=== PATIENT | female | born 1955 | race Caucasian/White ===

== ENCOUNTER 2020-12-18 10:09 | Inpatient (IN) | payer MEDICARE, OTHER ==
[~2020-12-18] VITALS: Ht 170.2 cm; Wt 104.3 kg
[2020-12-18] MEDS ORDERED: NORVASC10 MG PO (20:25)
[2020-12-18] MEDS ORDERED: ALDACTONE50 MG PO (20:27)
[2020-12-18] MEDS ORDERED: COZAAR 25MG TAB25 MG PO (20:29)
[2020-12-18] MEDS ORDERED: NEURONTIN600 MG PO (20:29)
[2020-12-18] MEDS ORDERED: COREG25 MG PO (20:29)
[2020-12-18] MEDS ORDERED: ALL DAY ALLERGY10 M2 PO (20:30)
[2020-12-18] MEDS ORDERED: SINGULAIR10 MG PO (20:30)
[2020-12-18] MEDS ORDERED: LASIX80 MG PO (20:32)
[2020-12-18] MEDS ORDERED: VITAMIN E180 M1 PO (20:37)
[2020-12-18] MEDS ORDERED: HYDROCODON-ACE1 EAC6 PO (20:38)
[2020-12-18] MEDS ORDERED: RENVELA800 MG PO (20:38)
[2020-12-18] MEDS ORDERED: FLONASE ALLER15.8 ML (20:39)
[2020-12-18] MEDS ORDERED: PROAIR HFA8.5 GM INH (20:41)
[2020-12-18] MEDS ORDERED: TRELEGY ELLIPT1 EACH INH (20:42)
[2020-12-18] MEDS ORDERED: ALBUTEROL2.5 MG/3 M INH (20:44)
[2020-12-18] MEDS ORDERED: SPORANOX100 MG PO (20:44)
[2020-12-18] MEDS ORDERED: LEVEMIR100 UNIT/1 SQ (20:45)
[2020-12-18] MEDS ORDERED: BUSPIRONE HCL7.5 MG PO (20:45)
[2020-12-18] MEDS ORDERED: ROCEPHIN 1 GM AD1 GM IV (20:46)
[2020-12-18] MEDS ORDERED: LOVENOX30 MG/0.3 SQ (20:47)
[2020-12-18] MEDS ORDERED: DECADRON IM/I4 MG/ML IV (20:47)
[2020-12-18] MEDS ORDERED: ZITHROMAX500 M1 IV (20:48)
[2020-12-18] MEDS ORDERED: PROTONIX IV40 MG IV (20:49)
[2020-12-18 22:45] LABS: HEMOGLOBIN 9.8 gm/dl (12.3-15.3); RED BLOOD COUNT 3.23 M/UL (4.00-5.10); WHITE BLOOD COUNT 6.4 K/UL (4.5-11.0)
[2020-12-18 23:32] LABS: BUN/CREATININE RATIO 14 (0-10)
[2020-12-20 04:53] LABS: HEMOGLOBIN 8.6 gm/dl (12.3-15.3); WHITE BLOOD COUNT 7.8 K/UL (4.5-11.0)
[2020-12-20 04:54] LABS: RED BLOOD COUNT 2.83 M/UL (4.00-5.10)
[2020-12-21 05:32] LABS: HEMOGLOBIN 8.1 gm/dl (12.3-15.3); RED BLOOD COUNT 2.64 M/UL (4.00-5.10); WHITE BLOOD COUNT 7.3 K/UL (4.5-11.0)
[2020-12-22 05:08] LABS: HEMOGLOBIN 9.3 gm/dl (12.3-15.3)
[2020-12-22 05:09] LABS: RED BLOOD COUNT 3.06 M/UL (4.00-5.10); WHITE BLOOD COUNT 14.1 K/UL (4.5-11.0)
[2020-12-23 06:07] LABS: RED BLOOD COUNT 2.98 M/UL (4.00-5.10); WHITE BLOOD COUNT 12.5 K/UL (4.5-11.0)
[2020-12-24 05:17] LABS: HEMOGLOBIN 10.1 gm/dl (12.3-15.3); RED BLOOD COUNT 3.32 M/UL (4.00-5.10); WHITE BLOOD COUNT 12.5 K/UL (4.5-11.0)
[2020-12-24 12:14] LABS: HBSAG SCREEN Negative (Negative); HEP A AB, IGM Negative (Negative); HEP B CORE AB, IGM Negative (Negative); HEP C VIRUS AB <0.1 (0.0-0.9)
[2020-12-25 05:30] LABS: HEMOGLOBIN 9.8 gm/dl (12.3-15.3); RED BLOOD COUNT 3.24 M/UL (4.00-5.10); WHITE BLOOD COUNT 13.6 K/UL (4.5-11.0)
[2020-12-26 04:45] LABS: HEMOGLOBIN 9.1 gm/dl (12.3-15.3); RED BLOOD COUNT 3.03 M/UL (4.00-5.10); WHITE BLOOD COUNT 12.8 K/UL (4.5-11.0)
[2020-12-27 05:48] LABS: RED BLOOD COUNT 3.01 M/UL (4.00-5.10); WHITE BLOOD COUNT 11.8 K/UL (4.5-11.0)
[2020-12-28 09:12] LABS: RED BLOOD COUNT 2.72 M/UL (4.00-5.10); WHITE BLOOD COUNT 14.4 K/UL (4.5-11.0)
[2020-12-29 10:19] LABS: HEMOGLOBIN 7.8 gm/dl (12.3-15.3); RED BLOOD COUNT 2.59 M/UL (4.00-5.10); WHITE BLOOD COUNT 11.2 K/UL (4.5-11.0)
[2020-12-30 04:41] LABS: HEMOGLOBIN 7.4 gm/dl (12.3-15.3); RED BLOOD COUNT 2.38 M/UL (4.00-5.10)
[2020-12-31 07:55] LABS: RED BLOOD COUNT 2.23 M/UL (4.00-5.10)
[2020-12-31 08:11] LABS: WHITE BLOOD COUNT 17.6 K/UL (4.5-11.0)
[2020-12-31 08:12] LABS: HEMOGLOBIN 6.6 gm/dl (12.3-15.3)
--- NOTE | 2020-12-31 18:09 | NUR ---
LAB HAS NOT GOT PATIENTS BLOOD READY BECAUSE SHE HAS AN ANTIBODY NOTED
[2021-01-01 04:58] LABS: RED BLOOD COUNT 2.92 M/UL (4.00-5.10)
[2021-01-01 04:59] LABS: HEMOGLOBIN 8.9 gm/dl (12.3-15.3)
[2021-01-02 06:23] LABS: HEMOGLOBIN 7.8 gm/dl (12.3-15.3)
[2021-01-02 07:39] LABS: RED BLOOD COUNT 2.57 M/UL (4.00-5.10); WHITE BLOOD COUNT 17.3 K/UL (4.5-11.0)
[2021-01-03 07:33] LABS: RED BLOOD COUNT 2.23 M/UL (4.00-5.10); WHITE BLOOD COUNT 12.3 K/UL (4.5-11.0)
[2021-01-03 07:34] LABS: HEMOGLOBIN 6.7 gm/dl (12.3-15.3)
--- NOTE | 2021-01-03 10:56 | NUR ---
0820- NOTIFIED DR HOOVER OF CRITICAL LAB RESULTS. STATED HE WOULD PUT IN NEW ORDERS.
[2021-01-04 07:18] LABS: HEMOGLOBIN 7.9 gm/dl (12.3-15.3)
[2021-01-04 07:26] LABS: RED BLOOD COUNT 2.54 M/UL (4.00-5.10)
[2021-01-05 06:18] LABS: RED BLOOD COUNT 2.56 M/UL (4.00-5.10); WHITE BLOOD COUNT 9.9 K/UL (4.5-11.0)
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
[2021-01-06 08:06] LABS: HEMOGLOBIN 7.4 gm/dl (12.3-15.3); RED BLOOD COUNT 2.36 M/UL (4.00-5.10); WHITE BLOOD COUNT 7.6 K/UL (4.5-11.0)
[2021-01-07 06:41] LABS: WHITE BLOOD COUNT 8.1 K/UL (4.5-11.0)
[2021-01-07 06:48] LABS: HEMOGLOBIN 6.4 gm/dl (12.3-15.3)
[2021-01-07 07:22] LABS: RED BLOOD COUNT 2.03 M/UL (4.00-5.10); WHITE BLOOD COUNT 8.5 K/UL (4.5-11.0)
[2021-01-07 07:57] LABS: HEMOGLOBIN 6.3 gm/dl (12.3-15.3)
[2021-01-07 16:57] LABS: HEMOGLOBIN 7.7 gm/dl (12.3-15.3)
[2021-01-08 08:34] LABS: HEMOGLOBIN 8.1 gm/dl (12.3-15.3); WHITE BLOOD COUNT 9.4 K/UL (4.5-11.0)
[2021-01-08 08:35] LABS: RED BLOOD COUNT 2.58 M/UL (4.00-5.10)
[2021-01-09 07:53] LABS: HEMOGLOBIN 6.4 gm/dl (12.3-15.3); RED BLOOD COUNT 2.08 M/UL (4.00-5.10); WHITE BLOOD COUNT 5.5 K/UL (4.5-11.0)
[2021-01-10 06:59] LABS: HEMOGLOBIN 7.6 gm/dl (12.3-15.3); WHITE BLOOD COUNT 4.6 K/UL (4.5-11.0)
[2021-01-10 07:11] LABS: RED BLOOD COUNT 2.45 M/UL (4.00-5.10)
[2021-01-11 08:31] LABS: HEMOGLOBIN 7.1 gm/dl (12.3-15.3); RED BLOOD COUNT 2.24 M/UL (4.00-5.10); WHITE BLOOD COUNT 4.1 K/UL (4.5-11.0)
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
[2021-01-12 07:56] LABS: WHITE BLOOD COUNT 3.1 K/UL (4.5-11.0)
[2021-01-12 07:57] LABS: RED BLOOD COUNT 1.9 M/UL (4.00-5.10)
[2021-01-12 07:58] LABS: HEMOGLOBIN 6.1 gm/dl (12.3-15.3)
[2021-01-13 07:07] LABS: HEMOGLOBIN 7.5 gm/dl (12.3-15.3); WHITE BLOOD COUNT 3.6 K/UL (4.5-11.0)
[2021-01-13 07:14] LABS: RED BLOOD COUNT 2.38 M/UL (4.00-5.10)
--- NOTE | 2021-01-13 08:05 | NUR ---
PATIENT HAD A BONE MARROW BIOPSY PERFORMED PER DR. NAJERA THIS AM. SCANT BLOODY DRAINAGE NOTED TO DRESSING EXTERIOR, MD AWARE. NO S/SX OF DISTRESS. BED LOCKED AND LOW. CALL LIGHT WITHIN REACH.
[2021-01-14] MEDS ORDERED: BUSPIRONE HCL7.5 MG PO (09:18)
[2021-01-14] MEDS ORDERED: LANTUS INS100 UTS/M1 SC (09:18)
[2021-01-14] MEDS ORDERED: NEURONTIN600 MG PO (09:18)
[2021-01-14] MEDS ORDERED: HUMALOG 10100 UNITS/ SC (09:18)
[2021-01-14] MEDS ORDERED: HYDROCODON-ACE1 EAC6 PO (09:18)
[2021-01-14] MEDS ORDERED: NICOTINE PATCH1 EAC1 TOP (09:18)
[2021-01-15] MEDS ORDERED: SENNA LAX8.6 MG PO (22:02)
[2021-01-15] MEDS ORDERED: CARVEDILOL12.5 MG PO (22:02)
[2021-01-15] MEDS ORDERED: POLYETHYLENE GL17 GM PO (22:02)
[2021-01-15] MEDS ORDERED: CHRONULAC20 GM/30 M PO (22:08)
[2021-01-15] MEDS ORDERED: RENVELA800 MG PO (22:16)
== END 2021-01-16 20:31 | DRG 208 ==
LOC: CCU 19:51 → MED SURG 4 19:51
PROVIDERS: Internal Medicine; Internal Medicine Nephrology; Internal Medicine Pulmonary Disease; ADMIT Internal Medicine
PROC: 8E0ZXY6 Isolation (ICD-10-PCS; principal; 2020-12-18)
PROC: 5A1945Z Respiratory Ventilation, 24-96 Consecutive Hours (ICD-10-PCS; 2020-12-18)
PROC: 3E0333Z Introduction of Anti-inflammatory into Peripheral Vein, Percutaneous Approach (ICD-10-PCS; 2020-12-18)
PROC: XW033E5 Introduction of Remdesivir Anti-infective into Peripheral Vein, Percutaneous Approach, New Technology Group 5 (ICD-10-PCS; 2020-12-18)
PROC: 0BH17EZ Insertion of Endotracheal Airway into Trachea, Via Natural or Artificial Opening (ICD-10-PCS; 2020-12-18)
PROC: 5A1D70Z Performance of Urinary Filtration, Intermittent, Less than 6 Hours Per Day (ICD-10-PCS; 2020-12-19)
PROC: 5A1D70Z Performance of Urinary Filtration, Intermittent, Less than 6 Hours Per Day (ICD-10-PCS; 2020-12-22)
PROC: 5A1D70Z Performance of Urinary Filtration, Intermittent, Less than 6 Hours Per Day (ICD-10-PCS; 2020-12-23)
PROC: 5A1D70Z Performance of Urinary Filtration, Intermittent, Less than 6 Hours Per Day (ICD-10-PCS; 2020-12-25)
PROC: 5A1D70Z Performance of Urinary Filtration, Intermittent, Less than 6 Hours Per Day (ICD-10-PCS; 2020-12-27)
PROC: 5A1D70Z Performance of Urinary Filtration, Intermittent, Less than 6 Hours Per Day (ICD-10-PCS; 2020-12-30)
PROC: 30233N1 Transfusion of Nonautologous Red Blood Cells into Peripheral Vein, Percutaneous Approach (ICD-10-PCS; 2020-12-31)
PROC: 5A09457 Assistance with Respiratory Ventilation, 24-96 Consecutive Hours, Continuous Positive Airway Pressure (ICD-10-PCS; 2020-12-31)
PROC: 5A1D70Z Performance of Urinary Filtration, Intermittent, Less than 6 Hours Per Day (ICD-10-PCS; 2021-01-01)
PROC: 5A1D70Z Performance of Urinary Filtration, Intermittent, Less than 6 Hours Per Day (ICD-10-PCS; 2021-01-03)
PROC: 5A1D70Z Performance of Urinary Filtration, Intermittent, Less than 6 Hours Per Day (ICD-10-PCS; 2021-01-06)
PROC: 5A1D70Z Performance of Urinary Filtration, Intermittent, Less than 6 Hours Per Day (ICD-10-PCS; 2021-01-08)
PROC: 5A1D70Z Performance of Urinary Filtration, Intermittent, Less than 6 Hours Per Day (ICD-10-PCS; 2021-01-11)
PROC: 07DR3ZX Extraction of Iliac Bone Marrow, Percutaneous Approach, Diagnostic (ICD-10-PCS; 2021-01-13)
PROC: 5A1D70Z Performance of Urinary Filtration, Intermittent, Less than 6 Hours Per Day (ICD-10-PCS; 2021-01-14)
PROC: 5A1D70Z Performance of Urinary Filtration, Intermittent, Less than 6 Hours Per Day (ICD-10-PCS; 2021-01-16)
DX: U07.1 COVID-19 (principal); J12.82 Pneumonia due to coronavirus disease 2019; N18.6 End stage renal disease; I50.33 Acute on chronic diastolic (congestive) heart failure; J80 Acute respiratory distress syndrome; J15.6 Pneumonia due to other Gram-negative bacteria; I13.2 Hypertensive heart and chronic kidney disease with heart failure and with stage 5 chronic kidney disease, or end stage renal disease; J44.0 Chronic obstructive pulmonary disease with (acute) lower respiratory infection; E87.1 Hypo-osmolality and hyponatremia; F11.20 Opioid dependence, uncomplicated; D61.818 Other pancytopenia; E66.2 Morbid (severe) obesity with alveolar hypoventilation; E11.21 Type 2 diabetes mellitus with diabetic nephropathy; F41.8 Other specified anxiety disorders; F17.210 Nicotine dependence, cigarettes, uncomplicated; E87.5 Hyperkalemia; D63.1 Anemia in chronic kidney disease; E11.22 Type 2 diabetes mellitus with diabetic chronic kidney disease; K59.00 Constipation, unspecified; L89.152 Pressure ulcer of sacral region, stage 2; M54.9 Dorsalgia, unspecified; S00.03XA Contusion of scalp, initial encounter; R53.83 Other fatigue; G89.29 Other chronic pain; R53.81 Other malaise; Z99.2 Dependence on renal dialysis; Z68.36 Body mass index [BMI] 36.0-36.9, adult; Z82.49 Family history of ischemic heart disease and other diseases of the circulatory system; Z99.81 Dependence on supplemental oxygen; Z88.2 Allergy status to sulfonamides; Z88.0 Allergy status to penicillin; Z79.82 Long term (current) use of aspirin; Z79.899 Other long term (current) drug therapy; Z79.52 Long term (current) use of systemic steroids; Z80.3 Family history of malignant neoplasm of breast; Z91.041 Radiographic dye allergy status; Z79.4 Long term (current) use of insulin; Z91.15 Patient's noncompliance with renal dialysis
CPT/HCPCS: ECHO; 36415; 36430; 36600; 70450; 71045; 80048; 80053; 80069; 80074; 80202; 82533; 82550; 82553; 82607; 82728; 82746; 82803; 82962; 83010; 83540; 83550; 83605; 83615; 83735; 83880; 84100; 84484; 85014; 85018; 85025; 85027; 85045; 85097; 85379; 85384; 85610; 85730; 86140; 86850; 86870; 86880; 86900; 86901; 86902; 86905; 86920; 86922; 87040; 87070; 87077; 87186; 87205; 88341; 88342; 88365; 90937; 92526; 92610; 93005; 93306; 94002; 94003; 94640; 94660; 94664; 94760; 97110; 97110-GP-CQ; 97162; 97166; 97530; 97530-GP-CQ; A6212; C9113; J1100; J1265; J1335; J1644; J1650; J1956; J2250; J2270; J2704; J2997; J3370; J7030; J7040; J7050; J7070; P9016; P9047; Q5105